=== PATIENT | female | born 1970 | race Caucasian/White ===

== ENCOUNTER → 2016-11-13 | Outpatient (CLI) | payer OTHER ==
[2016-11-13 19:40] LABS: THYROID STIMULATING HORMONE 5.68 uIu/ml (0.300-4.500)
[2016-11-15 13:56] LABS: MICROSOMAL AB 2 IU/ML (<9)
[2016-11-15 15:19] LABS: THYROGLOBULIN 10.8 NG/ML (2.8-40.9)
[2016-11-16 14:37] LABS: TSI <89 % baseline (<140)
== END | disposition home or self-care (01) ==
LOC: C.LABPBG 15:33
PROVIDERS: ATTEND Nurse Practitioner Adult Health
DX: R94.6 Abnormal results of thyroid function studies (principal)

== ENCOUNTER → 2016-12-27 | Outpatient (CLI) | payer OTHER | END | disposition home or self-care (01) | LOC: C.LABPBG 10:58 | PROVIDERS: ATTEND Nurse Practitioner Adult Health | DX: R94.6 Abnormal results of thyroid function studies (principal) ==